=== PATIENT | male | born 1970 | race Two or more races ===

== ENCOUNTER 2021-10-22 11:15 | Emergency (ER) | payer OTHER ==
[~2021-10-22] VITALS: Ht 182.9 cm; Wt 117.9 kg
[2021-10-22] MEDS ORDERED: KETO10TA2 PO (14:31)
[2021-10-22] MEDS ORDERED: CIPRO500 MG PO (14:31)
== END 2021-10-22 14:38 | disposition home or self-care (01) ==
LOC: ER 11:15
DX: R30.0 Dysuria (principal); N39.0 Urinary tract infection, site not specified